=== PATIENT | female | born 1945 | race Hispanic/Latino ===

== ENCOUNTER 2016-12-03 08:53 | Day surgery (SDC) | payer MEDICARE, BC ==
[2016-11-28 09:42] VITALS: BMI 41.3
[2016-12-03] MEDS ORDERED: Lidocaine 2% Inj (20ml) ONE (10:29)
[2016-12-03] MEDS ORDERED: Propofol 10 mg/ml Inj (20 ML) ONE (10:30)
[2016-12-03] MEDS ORDERED: Sodium Chloride 0.9% 1,000 ML IV SCH (11:15)
[2016-12-03 11:36] VITALS: O2SAT 97
[2016-12-03 12:13] VITALS: BP 96/45; PULSE 55; RESP 18; TEMP 97.6
== END 2016-12-03 13:10 | disposition home or self-care (01) ==
LOC: ENDO 08:53
PROVIDERS: ATTEND Internal Medicine Gastroenterology
DX: Z12.11 Encounter for screening for malignant neoplasm of colon (principal); D12.4 Benign neoplasm of descending colon; K57.30 Diverticulosis of large intestine without perforation or abscess without bleeding; K64.4 Residual hemorrhoidal skin tags; K64.8 Other hemorrhoids; Z80.0 Family history of malignant neoplasm of digestive organs
CPT/HCPCS: 45380; 88305; J2704; J7040 ×2